=== PATIENT | female | born 1995 | race American Indian/Alaskan Native ===

== ENCOUNTER 2017-05-03 11:26 | Outpatient (CLI) | payer MEDICAID ==
[2017-05-03 11:50] VITALS: BP 115/64
== END 2017-05-03 13:24 | disposition home or self-care (01) ==
LOC: TRG 11:26
PROVIDERS: ATTEND Obstetrics & Gynecology
DX: O47.1 False labor at or after 37 completed weeks of gestation (principal); Z3A.39 39 weeks gestation of pregnancy
CPT/HCPCS: 59025

== ENCOUNTER 2017-05-04 20:34 | Outpatient (CLI) | payer MEDICAID | END 2017-05-04 22:31 | disposition home or self-care (01) | LOC: TRG 20:34 | PROVIDERS: ATTEND Obstetrics & Gynecology | DX: O47.1 False labor at or after 37 completed weeks of gestation (principal); Z3A.39 39 weeks gestation of pregnancy | CPT/HCPCS: 59025 ==

== ENCOUNTER 2017-05-07 11:35 | Inpatient (IN) | payer MEDICAID ==
[2017-05-07] MEDS ORDERED: ePHEDrine SULFATE IV PRN ×2 (13:10→14:47)
[2017-05-07] MEDS ORDERED: BRETHINE SUB-Q PRN (13:10)
[2017-05-07] MEDS ORDERED: XYLOCAINE 2% INFILTRATI ONE (13:10)
[2017-05-07] MEDS ORDERED: SUBLIMAZE IV PRN (13:10)
[2017-05-07 13:30] LABS: Mean Corpuscular HGB Conc 36 % (30-34); Mean Corpuscular Hemoglobin 33 pg (28-32); Mean Corpuscular Volume 90 fl (79-97); Platelet Count 194 K/mm3 (140-440); Red Blood Count 4.37 M/mm3 (3.65-5.03); Red Cell Distribution Width 13.5 % (13.2-15.2); White Blood Count 10.7 K/mm3 (4.5-11.0)
[2017-05-07 13:43] LABS: Hematocrit 39.5 % (30.3-42.9); Hemoglobin 14.2 gm/dl (10.1-14.3)
--- NOTE | 2017-05-07 13:45 | History and Physical Report ---
History of Present Illness Date of examination: 05/07/17 Date of admission: 05/07/17 11:36 Chief complaint: Regular contractions; labor. History of present illness: 21 year old female at 39 weeks, 6 days gestation presents to L&D in labor. Patient denies leaking of fluid or vaginal bleeding. Patient reports active movement. Past History Past Medical History: no pertinent history Past Surgical History: no surgical history STATION MANAGER History: herpes (Patient has been on suppression with Valtrex; patient denies lesions or prodromal symptoms) Family/Genetic History: diabetes, hypertension Social history: lives with family. denies: smoking, alcohol abuse - Obstetrical History Expected Date of Delivery: 05/08/17 Actual Gestation: 39 Week(s) 6 Day(s) : 1 Para: 0 Hx # Term Pregnancies: 1 Number of Pregnancies: 0 Spontaneous Abortions: 0 Induced : 0 Number of Living Children: 0 Medications and Allergies Allergies Allergy/AdvReac Type Severity Reaction Status Date / Time No Known Allergies Allergy Unverified 05/03/17 11:51 Active Meds: Active Medications Ephedrine Sulfate (Ephedrine Sulfate) 10 mg IV Q2M PRN PRN Reason: Hypotension Stop: 05/07/17 23:59 Fentanyl (Sublimaze) 100 mcg IV Q2H PRN PRN Reason: Labor Pain Lactated Ringer's (Lactated Ringers) 1,000 mls @ 125 mls/hr IV DIRECT SHENA Oxytocin/Sodium Chloride (Pitocin/Ns 20 Unit/1000ml Drip) 20 units in 1,000 mls @ 125 mls/hr IV DIRECT SHENA Valacyclovir HCl (Valtrex) 500 mg PO BID SHENA Review of Systems All systems: negative (regular contractions) - Vital Signs Vital signs: Vital Signs Pulse Pulse Ox 106 H 98 05/07/17 12:09 05/07/17 12:09 Temp Pulse Resp BP Pulse Ox 119 H 16 132/91 97 05/07/17 13:19 05/07/17 12:38 05/07/17 12:10 05/07/17 13:19 - Physical Exam Breasts: Positive: deferred Abdomen: Positive: normal appearance, soft. Negative: distention, tenderness, guarding Genitourinary (Female): Positive: normal external genitalia. Negative: perineal /vulvar lesions Uterus: Positive: normal size, enlarged. Negative: tender Extremities: Positive: normal. Negative: tenderness, edema - Obstetrical FHR: category 2 Uterine Contraction Monitor Mode: External Cervical Dilatation: 5 Cervical Effacement Percentage: 70 station: -3 Uterine Contraction Pattern: Regular Uterine Contraction Intensity: Moderate Results Result Diagrams: 05/07/17 13:15 All other labs normal. Assessment and Plan A: at 39 weeks, 6 days gestation. Labor. GBS negative. P: Admit; anticipate .
[2017-05-07] MEDS ORDERED: VALTREX PO SCH (14:00)
[2017-05-07] MEDS ORDERED: PITOCin/NS 20 UNIT/1000ML DRIP 20 UNITS/1,000 ML BAG IV SCH (14:00)
[2017-05-07] MEDS: LACTATED RINGERS 1,000 ML IV SCH ×2 (14:11→14:37)
[2017-05-07] MEDS ORDERED: NARCAN 2 MG/2 ML IV PRN (14:47)
--- NOTE | 2017-05-07 14:47 | Anesthesia Consultation ---
Anesthesia Consult and Med Hx Date of service: 05/07/17 - Airway Anesthetic Teeth Evaluation: Good ROM Head & Neck: Adequate Mental/Hyoid Distance: Adequate Mallampati Class: Class II Intubation Access Assessment: Probably Good - Pulmonary Exam CTA: Yes - Cardiac Exam Cardiac Exam: RRR - Pre-Operative Health Status ASA Pre-Surgery Classification: ASA2 Proposed Anesthetic Plan: Epidural - Pulmonary Hx Asthma: No COPD: No Hx Pneumonia: No - Central Nervous System Hx Seizures: No - Endocrine Hx Renal Disease: No Hx End Stage Renal Disease: No Hx Hypothyroidism: No - Hematic Hx Anemia: No - Other Systems Hx Alcohol Use: No
[2017-05-07] MEDS ORDERED: fentaNYL-BUPIV 2 MCG/ML-0.125% 200 MCG/100 ML BAG EPIDURAL SCH (15:00)
--- NOTE | 2017-05-07 18:05 | Event Note ---
Date: 05/07/17 SVE 8-/-1. AROM to augment labor. Moderate amount of clear fluid obtained. Reassuring heart rate tracing. Patient is comfortable since she now has epidural.
--- NOTE | 2017-05-07 19:58 | Event Note ---
Date: 05/07/17 SVE: C/C/+1. Patient not feeling pressure yet with epidural. Will sit patient up and allow her to labor down. FHR reassuring. Maternal vital signs stable.
[2017-05-07] MEDS ORDERED: POLYCILLIN 500 MG in NACL 0.9% 50 ML IV ONE (20:05)
[2017-05-07] MEDS ORDERED: POLYCILLIN/NS 2 GM/100 ML 2 GM/100 ML BAG IV ONE (20:11)
[2017-05-07 20:38] LABS: Hematocrit 40.7 % (30.3-42.9); Hemoglobin 14.1 gm/dl (10.1-14.3); Mean Corpuscular HGB Conc 35 % (30-34); Mean Corpuscular Hemoglobin 32 pg (28-32); Mean Corpuscular Volume 92 fl (79-97); Platelet Count 216 K/mm3 (140-440); Red Blood Count 4.44 M/mm3 (3.65-5.03); Red Cell Distribution Width 13.7 % (13.2-15.2); White Blood Count 10.8 K/mm3 (4.5-11.0)
[2017-05-07 21:21] LABS: Anisocytosis 1+; Basophils % (Manual) 0 % (0.0-1.8); Blastocytes % (Manual) 0 %; Eosinophils % (Manual) 0 % (0.0-4.3)
[2017-05-07 21:22] LABS: Diff Status Complete; Platelet Estimate Consistent w Auto
--- NOTE | 2017-05-07 21:46 | Event Note ---
Date: 05/07/17 At 8:[address] Dominguez regarding patient's mild tachycardia (90s- low 100s). FHR category 1. Patient comfortable. Afebrile. Patient denies chills , shortness of breath, or chest pain. She has not had any uterine tenderness or foul smelling discharge. Dose of Ampicillin given and will continue for 3 doses . Patient started to feel pressure and wanted to push at 21:09; checked patient and did test push at this time. With stretching of perineum with pushing, tiny lesion noted on central perineum, unsure if traumatic from stretching vs. outbreak. Not seen before on perineal exams throughout the day. Called Dr. Dominguez and asked her to come evaluate the patient due to possible lesion. Advised patient that Dr. Dominguez is on her way to evaluate the lesion whether from stretching or possible outbreak. Advised patient not to push until Dr. Dominguez evaluates her.
--- NOTE | 2017-05-07 23:02 | Event Note ---
Date: 05/07/17 Dr. Dominguez came and evaluated patient and states lesion looks traumatic (from skin stretching); Dr. Dominguez states it is OK to proceed with vaginal delivery. HSV culture done. Discussed in detail with patient options for delivery now that this break in the skin has been detected. Offered patient a section. Advised patient that we will not know for sure if it is an outbreak until culture comes back; discussed possible adverse sequelae to the baby if she has a vaginal delivery in presence of an HSV lesion. Patient and partner state they want to proceed with vaginal delivery and understand risks to the baby if lesion turns out to be HSV outbreak. Patient declines section.
[2017-05-07] MEDS ORDERED: CYTOTEC ONE (23:36)
[2017-05-07] MEDS ORDERED: CYTOTEC PR ONE (23:44)
[2017-05-08] MEDS ORDERED: TUCKS PAD TP PRN (00:01)
[2017-05-08] MEDS ORDERED: NORCO 5/325 PO PRN (00:01)
[2017-05-08] MEDS ORDERED: LANSINOH TP PRN (00:01)
[2017-05-08] MEDS ORDERED: MOTRIN PO ONE (00:14)
[2017-05-08] MEDS: MOTRIN PO SCH ×4 (00:31→18:09)
--- NOTE | 2017-05-08 00:33 | Procedure Note ---
OB Delivery Note - Vaginal Delivery presentation: vertex Delivery position: OA Intrapartum events: none Delivery induction: none Delivery augmentation: rupture of membranes Delivery monitor: external FHT, external uterine Delivery placenta: spontaneous Delivery cord: 3 umbilical vessels Episiotomy: none Delivery laceration: none Anesthesia: epidural Delivery comments: Spontaneous vaginal delivery of liveborn male infant over intact perineum. Epidural anesthesia. Baby's weight 7 lb. 8 oz. Apgars 8/9. NICU present for delivery. Dr. Dominguez evaluated patient prior to pushing and remained present in L&D during delivery. Baby was taken to radiant warmer and NICU team immediately after and after 3 vessel cord was double clamped and cut. Spontaneous cry and respirations. Spontaneous delivery of intact placenta and membranes by chen mechanism. Placenta to pathology and placental culture taken. Pitocin to IV fluids after delivery of placenta. Cytotec 800 mcg given. Fundus firm and midline after Cytotec dose. EBL 300 ml. No lacerations noted. Mother and baby stable in birthing room.
[2017-05-08] MEDS ORDERED: SODIUM CHLORIDE FLUSH SYRINGE 10 ML IV NR (01:00)
--- NOTE | 2017-05-08 01:27 | Physician Progress Note ---
OBSTETRICS PROGRESS NOTE SUBJECTIVE: This patient is a 21-year-old female 1, para 0, who was admitted earlier today at 39 weeks and 6 days' gestation in labor. She has a history of genital herpes and has been on Valtrex suppressive therapy since she was 36 weeks' gestation. She has been taking Valtrex 1 gram a day p.o. She reported that she has been taking it every day and her last dose was taken this morning before she came to the hospital. On admission, she denies having any tingling, burning, or any lesions in the perineal area or vagina that would suggest an active outbreak or any imminent outbreak. Her labor had progressed and she received an epidural for pain control. After she became fully dilated, the instrument installer started to help her try to push. While stretching the perineum, she noticed a small area, which appeared to be red in the perineum, which was about 2 away from the introitus and the anal opening. She, at that time, was not able to tell if it was a skin abrasion or if it was a herpetic lesion. She called me and I came in to evaluate the patient. I found the patient lying in bed comfortably with the epidural. I examined the external genitalia first and the lesion in question appeared to be a straight cut form an abrasion and did not look like an ulcerative lesion that is typical for herpes. There was, however, a small dried lesion about 1 cm next to that abrasion which appeared to be dried lesion from a previous outbreak. The lesion did not appear ulcerated, but it appeared to be an old lesion that was healed. I took herpes culture from that lesion. After changing to different sterile gloves, I did a pelvic exam. At that time, the baby's head was already at +2 station and was visible just by opening the labia. The patient did have the urge to push at that time. I discussed the findings with the patient. I told her that the lesion in question does not look like a lesion that is typical for herpes, but it was a small straight skin cut, which was about 1 mm long and that lesion appeared to be just from stretching the perineum while helping her push. I also told her that there was a small dried lesion that looks more like an old herpes outbreak that is healed. This lesion was not ulcerated. Culture was taken. I told the patient that the chance for this old scarred lesion to have any viral shedding is extremely small and the chance for this to affect her baby through a vaginal delivery is also extremely small. I, however, discussed the option of doing a section versus allowing her to have a vaginal delivery. The risk of surgery was discussed in detail with her. Also, the risk of having a vaginal delivery with a possible dried herpectic lesion also discussed. I told her that this risk is extremely small because the small lesion is very dried and does not appear to be ulcerated anymore. Plus, she has been taking Valtrex, which decreases the risk of having any viral shedding further. She wanted to think about it and after a few minutes, then she decided to proceed with a vaginal delivery. I did tell her that during delivery, Betadine would be applied over her perineum and then the entire perineum will be covered with a towel to prevent the baby's head from even going near that small lesion. The instrument installer did see the lesion as well. JOB# [id number] [employer]
[2017-05-08] MEDS ORDERED: LACTATED RINGERS 1,000 ML IV ONE (02:06)
[2017-05-08] MEDS: POLYCILLIN/NS 1 GM/50 ML 1 GM/50 ML BAG IV SCH ×2 (02:23→11:41)
[2017-05-08] MEDS ORDERED: POLYCILLIN/NS 1 GM/50 ML 1 GM/50 ML BAG IV SCH (02:30)
[2017-05-08 09:02] LABS: Bilirubin,Urine NEG (Negative); Blood,Urine LG (Negative); Ketones,Urine NEG (Negative); Leukocyte Esterase,Urine LG (Negative); Nitrite,Urine NEG (Negative)
[2017-05-08 09:04] LABS: RBC,Urine > 182.0 /HPF (0.0-6.0)
--- NOTE | 2017-05-08 10:54 | Progress Note ---
Subjective Date of service: 05/08/17 Interval history: 1st day after normal vaginal delivery Patient is in the bed, comfortable. Pain is well controlled with pain meds. Ambulated well. No residual neurological deficit. No anesthesia complications Objective - Constitutional Vitals: Vital Signs - 12hr 05/07/17 05/07/17 05/07/17 22:55 23:00 23:04 Temperature Pulse Rate 96 H 100 H 106 H Respiratory Rate Blood Pressure 129/72 Blood Pressure [Left] Blood Pressure [Right] O2 Sat by Pulse 98 96 Oximetry 05/07/17 05/07/17 05/07/17 23:05 23:10 23:20 Temperature Pulse Rate 100 H 98 H 129 H Respiratory Rate Blood Pressure Blood Pressure [Left] Blood Pressure [Right] O2 Sat by Pulse 98 98 98 Oximetry 05/07/17 05/07/17 05/07/17 23:21 23:24 23:30 Temperature Pulse Rate 114 H 118 H 102 H Respiratory Rate Blood Pressure 140/66 Blood Pressure [Left] Blood Pressure [Right] O2 Sat by Pulse 98 97 Oximetry 05/07/17 05/07/17 05/08/17 23:34 23:49 00:04 Temperature Pulse Rate 111 H 98 H 97 H Respiratory Rate Blood Pressure 122/63 124/60 121/61 Blood Pressure [Left] Blood Pressure [Right] O2 Sat by Pulse 97 Oximetry 05/08/17 05/08/17 05/08/17 00:19 00:34 01:10 Temperature 100.3 F H Pulse Rate 92 H 93 H 91 H Respiratory 18 Rate Blood Pressure 118/58 120/75 Blood Pressure [Left] Blood Pressure 114/64 [Right] O2 Sat by Pulse Oximetry 05/08/17 07:55 Temperature 98.8 F Pulse Rate 70 Respiratory 20 Rate Blood Pressure Blood Pressure 110/70 [Left] Blood Pressure [Right] O2 Sat by Pulse Oximetry - Labs CBC & Chem 7: 05/07/17 13:15 Labs: Abnormal lab results 05/07/17 05/07/17 05/08/17 Range/Units 13:15 13:15 08:35 MCH 33 H (28-32) pg MCHC 36 H 35 H (30-34) % Seg Neuts % (Manual) 71.0 H (40.0-70.0) % Lymphocytes % (Manual) 11.0 L (13.4-35.0) % Monocytes % (Manual) 12.0 H (0.0-7.3) % Monocytes # (Manual) 1.3 H (0.0-0.8) K/mm3 Urine WBC (Auto) 178.0 H (0.0-6.0) /HPF
[2017-05-08 12:58] LABS: Hematocrit 35.7 % (30.3-42.9); Hemoglobin 12.2 gm/dl (10.1-14.3); Mean Corpuscular HGB Conc 34 % (30-34); Mean Corpuscular Hemoglobin 31 pg (28-32); Mean Corpuscular Volume 91 fl (79-97); Platelet Count 182 K/mm3 (140-440); Red Blood Count 3.92 M/mm3 (3.65-5.03); Red Cell Distribution Width 13.6 % (13.2-15.2); White Blood Count 12.8 K/mm3 (4.5-11.0)
[2017-05-09] MEDS: MOTRIN PO SCH ×2 (05:12→11:39)
[2017-05-09] MEDS ORDERED: BOOSTRIX IM ONE (06:00)
[2017-05-09 09:12] VITALS: BP 116/70
--- NOTE | 2017-05-09 09:23 | Progress Note ---
Assessment and Plan A: PPD # 1 stable P: Discharge home today Subjective - Subjective Date of service: 05/09/17 Principal diagnosis: Patient reports: appetite normal : doing well Objective - Vital Signs Latest vital signs: Vital Signs Temp Pulse Resp BP BP 05/09/17 08:40 98.5 F 80 20 116/70 05/09/17 00:00 98.2 F 78 116/66 05/08/17 16:22 98.9 F 84 20 100/70 05/08/17 11:48 98.7 F 78 20 110/70 Intake and Output 05/08/17 05/09/17 05/09/17 22:59 06:59 14:59 Intake Total 360 Balance 360 Intake: Oral 360 Other: Total, Intake Amount 120 Voiding Method Toilet # Voids 1 Void 1 1 - Exam Breasts: Present: deferred Cardiovascular: Present: Regular rate Lungs: Present: Clear to auscultation Abdomen: Present: soft Vulva: both: normal Uterus: Present: fundal height below umbilicus Extremities: Present: normal Deep Tendon Reflex Grade: Normal +2 - Labs Labs: Abnormal lab results 05/08/17 Range/Units 12:45 WBC 12.8 H (4.5-11.0) K/mm3
--- NOTE | 2017-05-09 09:24 | Discharge Summary ---
Providers - Providers Date of Admission: 05/07/17 11:36 Date of discharge: 05/09/17 Attending physician: KEYON ROJAS MD Primary care physician: KEYON ROJAS MD Hospitalization Reason for admission: active labor Delivery: Episiotomy: none Laceration: none Incision: normal Other procedures: none complications: none Discharge diagnosis: IUP at term delivered [place] baby: male Condition at discharge: Good Disposition: DC-01 TO HOME OR SELFCARE Plan - Provider Discharge Summary Activity: routine, no sex for 6 weeks, no strenuous exercise Diet: routine Instructions: routine Additional instructions: [] Smoking cessation referral if applicable(refer to patient education folder for contact #) [] Refer to [facility]'s [facility] Booklet Call your doctor immediately for: * Fever > 100.5 * Heavy vaginal bleeding ( >1 pad per hour) * Severe persistent headache * Shortness of breath * Reddened, hot, painful area to leg or breast * Drainage or odor from incision. * Keep incision clean and dry at all times and follow doctor's instructions regarding bathing/showering - Follow up plan Follow up: KEYON ROJAS MD [Primary Care Provider] - 6 Weeks Forms: Discharge Signature Page
== END 2017-05-09 12:00 | disposition home or self-care (01) | DRG 774 ==
LOC: TRG 11:35 → LD 11:36 → OB 05-08 01:03
PROVIDERS: ADMIT Obstetrics & Gynecology; ATTEND Obstetrics & Gynecology
PROC: 10E0XZZ Delivery of Products of Conception, External Approach (ICD-10-PCS; principal; 2017-05-07)
PROC: 10907ZC Drainage of Amniotic Fluid, Therapeutic from Products of Conception, Via Natural or Artificial Opening (ICD-10-PCS; 2017-05-07)
PROC: 3E0S3CZ (ICD-10-PCS; 2017-05-08)
PROC: 00HU33Z Insertion of Infusion Device into Spinal Canal, Percutaneous Approach (ICD-10-PCS; 2017-05-08)
DX: O98.52 Other viral diseases complicating childbirth (principal); Z3A.39 39 weeks gestation of pregnancy; Z37.0 Single live birth; Z82.49 Family history of ischemic heart disease and other diseases of the circulatory system; Z83.3 Family history of diabetes mellitus; B00.9 Herpesviral infection, unspecified; Z79.899 Other long term (current) drug therapy
CPT/HCPCS: 36415; 81001; 85007; 85025; 85027; 86850; 86900; 86901; 87116; 87255; 88307; 90471; 90715; 99211; A6250; G0463; J0290; J2590; J3010; J7120